=== PATIENT | male | born 1965 | race African-American/Black ===

== ENCOUNTER 2017-09-09 10:25 | Outpatient (CLI) | payer OTHER ==
--- NOTE | 2017-09-09 21:42 | ULT ---
ABDOMINAL ULTRASOUND 09/09/17 Ultrasonography of the abdomen was performed for evaluation of right flank pain. The liver was slightly larger than normal, measuring 17.4 cm in oblique sagittal length. Internally, there were no signs of mass or dilated ducts. The spleen was 13.7 cm long which is upper normal. Inte rnally, it appears normal. The gallbladder contains no signs of stones or wall thickening. The common bile duct was 5 mm wide which is normal. The visible portions of the pancreas appears normal but not all areas were seen. The right kidney measures 15.4 cm in length and the left kidney measures 13.2 cm. While these sizes a re larger than one often sees, the organs themselves appeared completely normal. the aorta was seen p oorly due to bowel gas, but no aneurysm was appreciated. IMPRESSION: Hepatic and splenic sizes are borderline in size. Otherwise, there are no acute findings. POS: HOME
== END 2017-09-09 10:26 | disposition home or self-care (01) ==
LOC: BURULT 10:25
PROVIDERS: ATTEND Family Medicine
DX: R10.9 Unspecified abdominal pain (principal)
CPT/HCPCS: 76700

== ENCOUNTER 2020-02-21 15:04 | Emergency (ER) | payer OTHER ==
[2020-02-22 02:23] LABS: SARS-CoV-2 MS2 Positive; SARS-CoV-2 N Gene Negative; SARS-CoV-2 S Gene Negative; SARS-CoV-2 by NAA Not Detected (NotDetected); SARS-CoV-2 orf1ab Negative
== END 2020-02-21 15:30 | disposition home or self-care (01) ==
LOC: BURERS 15:04
DX: Z20.822 Contact with and (suspected) exposure to COVID-19 (principal); E78.5 Hyperlipidemia, unspecified; E78.00 Pure hypercholesterolemia, unspecified; I10 Essential (primary) hypertension
CPT/HCPCS: 87635; 99283; U0003

== ENCOUNTER 2023-07-22 13:51 | Outpatient (CLI) | payer OTHER | END 2023-07-22 13:52 | disposition home or self-care (01) | LOC: BURRAD 13:51 | PROVIDERS: ATTEND Family Medicine | DX: S90.31XA Contusion of right foot, initial encounter (principal) ==

== ENCOUNTER 2023-11-24 14:37 | Outpatient (CLI) | payer OTHER | END 2023-11-24 14:38 | disposition home or self-care (01) | LOC: BURRAD 14:37 | PROVIDERS: ATTEND Nurse Practitioner Family | DX: T14.8XXA Other injury of unspecified body region, initial encounter (principal) ==